=== PATIENT | female | born 1990 | race Caucasian/White ===

== ENCOUNTER 2019-01-13 20:46 | Emergency (ER) | payer SELFPAY ==
[~2019-01-13] VITALS: Ht 170.2 cm; Wt 95.3 kg
[2019-01-13 20:56] VITALS: Ht 170.2 cm; Wt 95.3 kg
[2019-01-13] MEDS ORDERED: TYLENOL W/CODEI1 TAB PO (22:46)
[2019-01-13] MEDS ORDERED: KEFLEX500 MG PO (22:46)
[2019-01-13 22:47] VITALS: BP 118/68
== END 2019-01-13 22:55 | disposition home or self-care (01) ==
LOC: D.ER 20:46
DX: O26.892 Other specified pregnancy related conditions, second trimester (principal); Z3A.18 18 weeks gestation of pregnancy; S02.5XXA Fracture of tooth (traumatic), initial encounter for closed fracture; X58.XXXA Exposure to other specified factors, initial encounter; Y93.89 Activity, other specified; Y92.89 Other specified places as the place of occurrence of the external cause; K04.7 Periapical abscess without sinus; K08.89 Other specified disorders of teeth and supporting structures

== ENCOUNTER → 2019-05-04 13:50 | Outpatient (CLI) | payer MEDICAID ==
[~2019-05-04 13:50] MED LIST: CELEXA20 MG PO; KEFLEX500 MG PO; PRENAVITE1 TAB PO; SYNTHROID175 MCG PO; TYLENOL W/CODEI1 TAB PO
[2019-05-04 15:02] LABS: ALT (SGPT) 21 U/L (10-68); CALC OSMOLALITY 275 mosm/kg (275-300); CALCIUM 8.5 mg/dL (8.5-10.1); CARBON DIOXIDE 26.1 mmol/L (21.0-32.0); CHLORIDE - SERUM 106 mmol/L (98-107); CREATININE - SERUM 0.6 mg/dL (0.6-1.3); GLUCOSE 76 mg/dL (74-106); POTASSIUM - SERUM 3.6 mmol/L (3.5-5.1); SODIUM 140 mmol/L (136-145); UREA NITROGEN 7 mg/dL (7-18); URIC ACID 4.8 mg/dL (2.6-7.2); eGFR NON AFRICAN AMERICAN > 90 mL/min (90-120)
[2019-05-04 15:05] LABS: HEMATOCRIT 34.2 % (36.0-48.0); HEMOGLOBIN 11.2 g/dL (12-16); MCH 27.2 pg (26.0-34.0); MCHC 32.7 g/dL (31.0-37.0); MEAN PLATELET VOLUME 9.9 fL (7.4-10.4); RBC 4.12 10x6/uL (4.00-5.40); RDW 14.3 % (11.5-14.5)
[2019-05-05 16:01] LABS: PROTEIN - URINE 16.8 mg/dL (0.0-11.9)
[2019-06-02 14:59] VITALS: BMI 46.6
== END | disposition home or self-care (01) ==
LOC: D.LDO 13:50
PROVIDERS: ATTEND Obstetrics & Gynecology
DX: O26.893 Other specified pregnancy related conditions, third trimester (principal); Z3A.34 34 weeks gestation of pregnancy

== ENCOUNTER → 2019-05-30 16:16 | Outpatient (CLI) | payer MEDICAID ==
--- NOTE | 2019-05-30 16:32 | NUR ---
DR. VORA NOTIFIED AND REVIEWED PT'S BEHAVIOR AND ASSESSMENT RESULTS. PT IS A LOW RISK PER DR. VORA. DR. VORA STATED TO GIVE RESOURCES TO PT AT TIME OF DISCHARGE. NO FURTHER ORDERS AT THIS TIME. RESOURCES REVIEWED WITH PT AND SHE VERBALIZED UNDERSTANDING.
[2019-06-02 14:59] VITALS: BMI 46.6
== END | disposition home or self-care (01) ==
LOC: D.LDO 16:16
PROVIDERS: ATTEND Obstetrics & Gynecology
DX: O26.899 Other specified pregnancy related conditions, unspecified trimester (principal); Z3A.37 37 weeks gestation of pregnancy; R03.0 Elevated blood-pressure reading, without diagnosis of hypertension

== ENCOUNTER 2019-06-01 21:09 | Inpatient (IN) | payer MEDICAID ==
[~2019-06-01] VITALS: Ht 170.2 cm; Wt 134.7 kg
[2019-06-01 21:37] VITALS: BP 137/75; BMI 46.6
[2019-06-01 23:40] LABS: HEMATOCRIT 34.2 % (36.0-48.0); HEMOGLOBIN 11.4 g/dL (12-16); MCH 27.5 pg (26.0-34.0); MCHC 33.3 g/dL (31.0-37.0); MCV 82.6 fL (80.0-100.0); MEAN PLATELET VOLUME 9.6 fL (7.4-10.4); RBC 4.14 10x6/uL (4.00-5.40); RDW 13.6 % (11.5-14.5); WBC 12.1 10x3/uL (4.8-10.8)
[2019-06-01 23:49] LABS: UDS - AMPHET NEGATIVE QUAL (NEGATIVE); UDS - BARB NEGATIVE QUAL (NEGATIVE); UDS - BENZO NEGATIVE QUAL (NEGATIVE); UDS - COCAINE NEGATIVE QUAL (NEGATIVE); UDS - OPIATE NEGATIVE QUAL (NEGATIVE); UDS - PCP NEGATIVE QUAL (NEGATIVE); UDS - THC NEGATIVE QUAL (NEGATIVE)
[2019-06-01 23:50] LABS: APPEARANCE SL CLDY (CLEAR); BILIRUBIN NEGATIVE (NEGATIVE); COLOR YELLOW (YELLOW); GLUCOSE NEGATIVE (NEGATIVE); KETONE NEGATIVE (NEGATIVE); NITRITE NEGATIVE (NEGATIVE); PROTEIN TRACE mg/dL (NEGATIVE); UROBILINOGEN NORMAL (NORMAL)
[2019-06-01 23:52] LABS: BACTERIA MODERATE /hpf (NEGATIVE); EPITHELIAL CELLS 0-5 /hpf (0-5); RED CELLS - URINE NONE SEEN /hpf (0-5); WHITE CELLS - URINE 0-5 /hpf (NEGATIVE)
[2019-06-02 14:59] VITALS: Ht 170.2 cm; Wt 134.7 kg
--- NOTE | 2019-06-02 19:35 | NUR ---
REC'D PT AA&O X 4 SITTING ON THE SOFA IN ROOM 1257. PT READY FOR TRANSFER TO CLEAN ROOM. PT TRANSFERED AMBULATORY TO ROOM 1257. SLOW GATE NOTED. PT REPORTS HER HIPS ARE HURTING HER. TO ORIENTED TO ROOM, CALL LIGHT AND PHONE. THEN TO BED FOR SHIFT ASSESSMENT. SEE FLOWSHEET.PT DENIES NEEDS AT PRESENT. DECLINES OFFERS TO BRIGN HER ANYTHING TO EAT OR DRINK AT THIS TIME. FAMILY HAS BROUGHT HER FOOD AND SNACKS. FOB AT BEDSIDE AT THIS TIME.
[2019-06-02 19:45] VITALS: BP 126/86
--- NOTE | 2019-06-02 21:00 | NUR ---
ROUNDS MADE. PT UP TO BR AT THIS TIME. PAIN AND NEEDS ASSESSED. PT REQUESTING PAIN MEDICATION AT THIS TIME. PT INFORMED THAT SHE MAY NOT ADDITIONAL PAIN MEDICATION UNTIL 2129. PT AGREEABLE TO WAITING UNTIL THAT TIME.
--- NOTE | 2019-06-02 21:50 | NUR ---
PT MEDICATED W/TORADOL 10MG AND SCHEDULED TYLENOL 1000MG PO. PT DENIES NEEDS AT THIS TIME. FAMILY AT BEDSIDE.
--- NOTE | 2019-06-03 | NUR ---
ROUNDS MADE. PT LYING IN BED W/LIGHTS TURNED DOWN. PAIN AND NEEDS ASSESSED. PT REPORTS ABD CRAMPING STILL PRESENT, BUT IS BETTER. RATED 3/10.
--- NOTE | 2019-06-03 02:38 | NUR ---
ROUNDS MADE. PT CURRENTLY SITTING UP IN BED . PAIN AND NEEDS ASSESSED. PT REPORTS SHE BEGINNING TO HAVE ABD CRAMPING AND DESIRES TO HAVE PAIN MEDICATION WHEN SHE CAN. ICE SERVED. PT DENIES FURTHER NEEDS.
--- NOTE | 2019-06-03 03:50 | NUR ---
THIS RN TO BEDSIDE FOR TYLENOL ADMIN. PT LYING AWAKE IN BED W/ AT HER SIDE. PT RATES ABD CRAMPING PAIN 01/20. EMAR FOR ADMIN. FRESH ICE SERVED. PT DENIES FURTHER NEEDS AT THIS TIME.
--- NOTE | 2019-06-03 04:53 | NUR ---
rounds made. pt lying to rt side in bed w/eyes closed. resp even and unlabored. in bed on pillow beside pt. pt wakened and informed that infant will be transfered to open crib while she sleeps. pt verbalizes understanding. placed in open crib at pt's bedside. pt reports abd cramping is better. denies needs at this time.
[2019-06-03 05:46] LABS: BASOPHILS 0.2 % (0-2); HEMATOCRIT 28.7 % (36.0-48.0); HEMOGLOBIN 9.3 g/dL (12-16); IMMATURE GRANULOCYTES 1.2 % (0-5); LYMPHOCYTES 23.2 % (15-50); MCH 26.6 pg (26.0-34.0); MCHC 32.4 g/dL (31.0-37.0); MCV 82.2 fL (80.0-100.0); MEAN PLATELET VOLUME 9.6 fL (7.4-10.4); MONOCYTES 5.4 % (2-11); PLATELET COUNT 264 10x3/uL (130-400); RBC 3.49 10x6/uL (4.00-5.40); RDW 14.5 % (11.5-14.5); WBC 11.7 10x3/uL (4.8-10.8)
--- NOTE | 2019-06-03 06:30 | NUR ---
ROUNDS MADE. PT CURRENTLY SITTING UP IN BED INFANT. NO NEEDS VOICED AT THIS TIME.
[2019-06-03 07:12] LABS: RAPID PLASMA REAGIN Non Reactive (Non Reactive)
[2019-06-03 07:40] VITALS: BP 128/77
--- NOTE | 2019-06-03 07:40 | NUR ---
AM ASSESSMENT COMPLETED, PT SITTING UP IN BED WITH IN ARMS ON ENTRY TO ROOM, BONDING WELL, RESP EVEN AND UNLABORED, SMILING BUT REPORTS PAIN LEVEL OF 4-5 ON NUMERIC PAIN SCALE,DESCRIBED AT MOSTLY CRAMPING. TORADOL OFFERED AND RECEIVED PER REQUEST. LUNGS CTAB, HEART RRR, ABD SOFT, MILDLY TENDER, FUNDUS FIRM AT U/2 AND MIDLINE, BOWEL SOUNDS PRESENT X4 QUADS, VOIDING WITHOUT DIFFICULTY, CHONG FREELY, PEDAL PULSES STRONG/=/+2, NEGATIVE FANTASMA'S SIGN B LE, CAP REFILL LESS THAN 2 SECS B. REVIEWED PLAN OF CARE, STATES UNDERSTANDING. CALL LIGHT IN EASY REACH, FAMILY PRESENT IN ROOM, BED IN LOW POSITION, BED BRAKES LOCKED, WILL MONITOR.
--- NOTE | 2019-06-03 08:33 | NUR ---
STATES TORADOL EFFECTIVE FOR RELIEF OF PAIN, RATES PAIN ZERO. LYING ON RIGHT LATERAL POSITION AND SCROLLING THROUGH PERSONAL CELLULAR PHONE. NO OTHER NEEDS VOICED AT THIS TIME, CONTINUE TO MONITOR.
--- NOTE | 2019-06-03 09:43 | NUR ---
ROUNDS COMPLETED, SCHEDULED TYLENOL GIVEN WITH SIPS OF SODA. NO OTHER NEEDS VOICED, PT LYING ON LEFT LATERAL POSITION, EYES CLOSED ON ENTRY TO ROOM, NAD NOTED. CALL LIGHT IN EASY REACH, FAMILY PRESENT IN ROOM FOR PRN ASSIST. WILL MONITOR.
--- NOTE | 2019-06-03 10:39 | NUR ---
PAIN REASSESSMENT COMPLETED, NAD NOTED, DENIES NEEDS OR CONCERNS, CONTINUE TO MONITOR.
--- NOTE | 2019-06-03 11:04 | NUR ---
rounds completed, ice chips provided upon request, in arms, no acute distress noted, denies other needs, continue to monitor.
--- NOTE | 2019-06-03 12:36 | NUR ---
LAB CALLS, STATES BLEED SCREEN POSITIVE BUT UNABLE TO DETERMINE AMOUNT RHOGAM NEEDED UNTIL SENDOUT LAB RETURNS.
--- NOTE | 2019-06-03 13:40 | NUR ---
ROUNDS COMPLETED, ICE CHIPS PROVIDED UPON REQUEST. FAMILY TO ROOM VISITING. NAD NOTED, CALL LIGHT IN EASY REACH.
--- NOTE | 2019-06-03 14:51 | NUR ---
PT C/O ABD CRAMPING WHILE , TORADOL PRN GIVEN WITH SIPS WATER, NO OTHER NEEDS VOICED AT THIS TIME, CONTINUE TO MONITOR.
--- NOTE | 2019-06-03 15:30 | NUR ---
rounds completed, nad. call light in easy reach, lights dimmed, eyes closed, resp even and unlabored.
--- NOTE | 2019-06-03 16:30 | NUR ---
regular tray to pt room for dinner, denies needs or concerns. call light in easy reach.
--- NOTE | 2019-06-03 17:30 | NUR ---
pt request for motrin instead of toradol for next dose, verbal order received per dr chicas who states okay to dc toradol and begin motrin prn. pt also of right forearm saline lock pain, states would like to have discontinued. removed SL, catheter tip intact, pressure dressing applied to site and secured with tape. call light in easy reach.
--- NOTE | 2019-06-03 18:31 | NUR ---
ROUNDS COMPLETED, DENIES NEEDS OR COMPLAINTS, AMBULATORY IN ROOM, CALL LIGHT IN EASY REACH, WILL MONITOR.
--- NOTE | 2019-06-03 20:00 | NUR ---
AT PRESENT. PT. WITHOUT COMPLAINTS AT THIS TIME. PT. WILL NOTIFY THIS NURSE WHEN COMPLETED SO ASSESSMENT CAN BE COMPLETED.
[2019-06-03 20:30] VITALS: BP 140/88
--- NOTE | 2019-06-03 20:30 | NUR ---
SITTING UP IN BED HOLDING . DENIES ANY PAIN AT THIS TIME. BREATH SOUNDS CLEAR AND BOWEL SOUNDS ACTIVE. STATES HAD BM AFTER DELIVERY.DENIES ANY PAIN IN LOWER EXTREMITIES. FUNDUS FIRM U/2 AND LOCHIA RUBRA MINIMAL. FOB IN ROOM WITH PT.
--- NOTE | 2019-06-03 21:52 | NUR ---
walking about in room. Denies any pain. Scheduled Tylenol given and pt. reports that she will call during the night if next dose is needed. Does not desire to be awakened when sleeping. call light within reach.
--- NOTE | 2019-06-03 22:00 | NUR ---
QUESTIONED PT. REGARDING IF SHE HAD CULTURAL OR SPIRTUAL BELIEFS THAT COULD EFFECT HER CARE AND SHE STATED THAT SHE DID NOT. (ASSESSMENT INFORMATION WAS MARKED ON ADMIT ASSESSMENT THAT THERE WAS CULTURAL OR SPIRITUAL BELIEFS THAT COULD EFFECT HER CARE.)
--- NOTE | 2019-06-03 22:30 | NUR ---
ROUNDS MADE TO PROVIDE EXTRA BLANKETS FOR PT. PT CURRENTLY UP AMBULATING ROOM, GETTING READY TO SHOWER. PT DENIES NEEDS. NO C/O PAIN.
--- NOTE | 2019-06-04 | NUR ---
PT RINGS CALL LIGHT REQUESTING SOMETHING FOR ABD CRAMPING. MOTRIN 600MG PO GIVEN. PT DENIES FURTHER NEEDS OTHER THAN ADDITIONAL BLANKETS FOR GUESTS.
--- NOTE | 2019-06-04 02:09 | NUR ---
ROUNDS MADE. PT UP AMBULATING INT HE ROOM. PAIN AND NEEDS ASSESSED. PT REPORTS ABD CRAMPING IS BETTER. ICE CHIPS SERVED PER REQUEST.
--- NOTE | 2019-06-04 03:55 | NUR ---
ROUNDS MADE. PT LYING IN BED RESTING WITH EYES CLOSED. RESP EVEN AND UNLABORED. LYING AT MOMS SIDE. PT WAKENED TO LET HER KNOW INFANT WILL BE TRANSFERED TO OPEN CRIB AT BEDSIDE. NO NEEDS VOICED AT THIS TIME.
--- NOTE | 2019-06-04 06:15 | NUR ---
ROUNDS MADE. PT LYING TO RT SIDE. RESP EVEN AND UNLABORED. SNORING AUDIBLE. PT LEFT UNDISTURBED AT THIS TIME.
--- NOTE | 2019-06-04 08:12 | NUR ---
SLEEPING ON LEFT SIDE, RESPIRATIONS EVEN, SNORING. WILL COMPLETE SHIFT ASSESSMENT WHEN AWAKE. VISITOR SLEEPING ON COUCH. INFANT IN NURSERY. SIDERAILS UP X 2, CALL LIGHT IN REACH. ANTICIPATE DC HOME TODAY. O NEG, BABY RH POSITIVE, POSITIVE BLEED SCREEN, RUBELLA IMMUNE, TDAP STATUS UNKNOWN. BREAST/BOTTLE FEEDING.
[2019-06-04 08:50] VITALS: BP 135/81
--- NOTE | 2019-06-04 08:50 | NUR ---
AWAKE SITTING UP IN BED LOOKING AT CELL PHONE. INFANT IN CRIB. SHIFT ASSESSMENT COMPLETED. BREASTFEEDER. DENIES NEEDING ANYTHING. ANTICIPATE DC HOME TODAY. CALL LIGHT IN REACH. TO CALL IF ANYTHING IS NEEDED. VERBALIZED UNDERSTANDING.
--- NOTE | 2019-06-04 09:26 | NUR ---
DERMOPLAST GIVEN TO PATIENT FOR USE ON PERINEUM TO DECREASE 5/10 DISCOMFORT. INSTRUCTED ON USE. SAYS DR MONGE CAME BY TO VISIT HER. NO REQUESTS. VISITOR AND IN ROOM.
--- NOTE | 2019-06-04 09:47 | NUR ---
SCHEDULED TYLENOL 1000 MG GIVEN PO FOR RELIEF OF DISCOMFORT. DISCUSSED RHOGAM AND NEED TO F/U IN CLINIC TOMORROW TO SEE IF SHE WILL NEED ADDITIONAL RHOGAM BASED ON POSITIVE SCREEN. EXPLAINED TO PT SCREEN. VERBALIZED UNDERSTANDING. RHOGAM GIVEN IM RIGHT DELTOID.
--- NOTE | 2019-06-04 11:34 | NUR ---
SITTING UP IN CHAIR. JUST FINISHED TALKING TO HARNESS AND BAG INSPECTOR. DC ORDERS IN COMPUTER, MEDICATION RECONCILED BY DR MOGNE HOME MEDS LISTED ON IN-PT RECORD. CELEXA 20 MG GIVEN PO. PATIENT WILL TAKE OWN PNV WHEN SHE GETS HOME. PAIN HAS IMPROVED 3/10 PERINEAL ACHING, HAS NOT USED DERMOPLAST SPRAY. VISITORS AND IN ROOM. PLAN DC WITH AFTER 1400.
--- NOTE | 2019-06-04 14:31 | NUR ---
SITTING UP IN BED INFANT. DC TEACHING COMPLETED TO INCLUDE POST CARE, PP DEPRESSION, S&S OF INFECTION, DANGER SIGNS, BREAST FEEDING/BREAST CARE, MEDICATION ADMINISTRATION AND FOLLOW-UP. NO SPECIFIC QUESTIONS ASKED AT THIS TIME. WILL DC WHEN DC'D. Michael MADSEN RN NURSERY TO ROOM TO PROVIDE DC INSTUCTIONS. VISITOR X 1 IN ROOM.
--- NOTE | 2019-06-04 14:34 | NUR ---
PT SAID EARLIER THAT SHE IS NOT FROM [place] BUT HAD TDAP 6 YEARS AGO. WILL NEED BOOSTER IN 4 YEARS.
--- NOTE | 2019-06-04 14:41 | NUR ---
REMINDED PATIENT TO CALL CLINIC TOMORROW TO FOLLOW-UP WITH BLEED TO SEE IF ADDITIONAL RHOGAM IS NEEDED. VERBALIZED UNDERSTANDING.
--- NOTE | 2019-06-04 14:53 | NUR ---
DC'D VIA WHEELCHAIR TO CAR. IN CARSEAT. FAMILY ASSISTING. ALL BELONGINGS REMOVED FROM ROOM. PT GIVEN REMINDER CARD TO CALL CLINIC TOMORROW TO SCHEDULE APPOINTMENT AND CHECK ON NEED FOR ADDITIONAL RHOGAM.
== END 2019-06-04 14:53 | disposition home or self-care (01) | DRG 807 ==
LOC: D.LD 21:09
PROVIDERS: ADMIT Obstetrics & Gynecology; ATTEND Obstetrics & Gynecology
PROC: 10E0XZZ Delivery of Products of Conception, External Approach (ICD-10-PCS; principal; 2019-06-02)
PROC: 0HQ9XZZ Repair Perineum Skin, External Approach (ICD-10-PCS; 2019-06-02)
DX: O99.344 Other mental disorders complicating childbirth (principal); Z37.0 Single live birth; O99.284 Endocrine, nutritional and metabolic diseases complicating childbirth; E07.89 Other specified disorders of thyroid; F32.9 Major depressive disorder, single episode, unspecified; F41.9 Anxiety disorder, unspecified; Z3A.39 39 weeks gestation of pregnancy; O70.0 First degree perineal laceration during delivery